=== PATIENT | female | born 1980 | race Caucasian/White ===

== ENCOUNTER 2018-08-18 20:09 | Inpatient (IN) ==
[2018-08-18] MEDS ORDERED: Piperacillin/Tazobactam 3.375 GM in 0.9 % Sodium Chloride Mini Bag 100 ML IVPB ONE (20:40)
[2018-08-18] MEDS ORDERED: 0.9 % Sodium Chloride 1,000 ML IV SCH (20:45)
--- NOTE | 2018-08-18 20:57 | Emergency Department Note ---
Disposition Clinical Impression: Abscess, Cellulitis and abscess of hand Disposition: Admitted As Inpatient Condition: Good Time of Disposition: 20:55 General Adult HPI - General Chief complaint: ED Extremity Injury, Upper Stated complaint: Lt index finger swelling Time Seen by Provider: 08/18/18 20:32 Source: patient Limitations: no limitations Nursing Notes Reviewed: Yes Vital Signs Reviewed: Yes - History of Present Illness HPI Narrative: Progressive abscess to the dorsum of left index finger proximal phalanx. Blotchy erythema to the dorsum the left hand. Also erythema in the left forearm and left arm. No neurovascular deficits. No flexor compartment involvement of the left index at this time. Subjective fever for 2-3 days. Swelling of the left index present for 4-5 days. Continued IV drug use. She denies IV drug use at the site. Patient was accepted to the hospitalist by admission at 10:50 PM. Patient's status improved prior to admission. Onset (ago): day(s) Radiation: non-radiation Pain Scale: 9 Quality: aching Consistency: constant Improves with: nothing Worsens with: nothing Associated symptoms: Reports: cough, fever/chills. Denies: diaphoresis - Related Data Home Medications Medication Instructions Recorded Confirmed Aspirin [Adult Low Dose Aspirin EC] 81 mg PO DAILY 01/06/16 02/22/18 Previous Rx's Medication Instructions Recorded Sulfamethoxazole/Trimeth DS 1 each PO BID #20 tablet 02/22/18 [Bactrim DS] Allergies Allergy/AdvReac Type Severity Reaction Status Date / Time Cyclobenzaprine Allergy Hives Verified 01/18/18 16:21 [From Flexeril] diphenhydramine Allergy Hives Verified 01/18/18 16:21 [From Benadryl] ketorolac [From Toradol] Allergy Hives Verified 01/18/18 16:21 quetiapine [From Seroquel] Allergy Palpitation Verified 01/18/18 16:21 s trazodone Allergy Palpitation Verified 01/18/18 16:21 s Constitutional: Reports: as per HPI, fever, chills Eyes: Denies: eye pain, eye discharge, vision change ENT ED: Denies: ear pain, throat pain, dental pain, hearing loss, epistaxis, congestion, dysphagia Cardiovascular: Denies: chest pain, palpitations, dyspnea on exertion, edema, syncope Respiratory: Denies: cough, dyspnea, wheezes, hemoptysis, stridor Gastrointestinal: Denies: abdominal pain, nausea, vomiting, diarrhea, constipation, hematemesis, melena, hematochezia Genitourinary: Denies: dysuria, frequency, hematuria, discharge Musculoskeletal: Denies: back pain, neck pain, arthralgia, myalgia Integumentary: Reports: as per HPI, rash, lesions Neurological: Denies: headache, weakness, numbness, paresthesias, confusion Psychiatric: Denies: suicidal thoughts, homicidal thoughts Endocrine: Denies: fatigue Hematological/Lymphatic: Denies: easy bleeding, easy bruising Allergic/Immunologic: Denies: facial swelling, urticaria Past Medical History - Past Medical History Medical history: Reports: atrial fibrillation, hepatitis, migraine Surgical history: Reports: cholecystectomy Psychiatric history: Reports: bipolar [employer]VENUE COORDINATOR history: Reports: endometriosis - Social History Smoking Status: Current every day smoker Smokeless Tobacco Status: No Alcohol use: Reports: none Drug use: Reports: IV Drug Use Physical Exam - General Limitations: no limitations General appearance: alert, in no apparent distress - Head Head exam: atraumatic, normocephalic, normal inspection - Eye Eye exam: Present: normal appearance, PERRL, EOMI - Expanded Eye Exam Pupils: Left: reactive - ENT ENT exam: normal exam, normal oropharynx, mucous membranes moist - Expanded ENT Exam External ear exam: Present: normal external inspection Mouth exam: Present: normal external inspection Teeth exam: Present: normal inspection Throat exam: Present: normal inspection - Neck Neck exam: Present: normal inspection, full ROM, trachea midline - Chest Chest inspection: Present: normal inspection, symmetric chest wall rise - Respiratory Respiratory exam: Present: normal lung sounds bilaterally - Cardiovascular Cardiovascular exam: Present: regular rate, normal rhythm, normal heart sounds - Abdominal Exam Abdominal exam: Present: soft, Non-Tender. Absent: tenderness, distention, guarding, rebound, rigidity - Extremities Exam Extremities exam: Present: tenderness, joint swelling, other (left upper extremity exam as noted in hpi) - Expanded Upper Extremity Exam Shoulder exam: Present: normal inspection, full ROM Arm exam: Present: normal inspection, full ROM Elbow exam: Present: normal inspection, full ROM Forearm/Wrist exam: Present: normal inspection, full ROM Hand exam: Present: normal inspection, full ROM Vascular exam: Normal: capillary refill, radial pulse - Expanded Lower Extremity Exam Hip/Pelvis exam: Present: normal inspection, full ROM Upper leg exam: Present: normal inspection, full ROM Knee exam: Present: normal inspection, full ROM Lower leg exam: Present: normal inspection, full ROM Ankle exam: Present: normal inspection, full ROM Foot/toe exam: Present: normal inspection, full ROM Neurovascular/Tendon exam: Absent: motor deficit, sensory deficit, tendon deficit - Back Exam Back exam: Present: normal inspection, full ROM. Absent: tenderness - Neurological Exam Neurological exam: Present: alert, oriented X3 - Expanded Neurological Exam Patient oriented to: Present: person, place, time Coma Scale Eye Opening: Spontaneous Coma Scale Motor Response: Obeys Commands Coma Scale Verbal Response: Oriented Coma Scale Total: 15 - Psychiatric Psychiatric exam: Present: normal affect, normal mood - Skin Skin exam: Present: warm, dry, intact, normal color Course Vital Signs Temperature 99.3 F 08/18/18 20:10 Pulse Rate 92 08/18/18 20:10 Respiratory Rate 16 08/18/18 20:10 Blood Pressure 126/89 08/18/18 20:10 O2 Sat by Pulse Oximetry 97 08/18/18 20:10 Temperature 99.3 F 08/18/18 20:10 Pulse Rate 84 08/18/18 22:40 Respiratory Rate 18 08/18/18 22:40 Blood Pressure 111/72 08/18/18 22:40 O2 Sat by Pulse Oximetry 97 08/18/18 20:10 Oxygen Delivery Oxygen Delivery Room Air Medical Decision Making - Lab Data Result diagrams: 08/18/18 20:41 08/18/18 20:41 Lab Results 08/18/18 08/18/18 08/18/18 Range/Units 20:41 20:41 20:52 WBC 12.8 H (4.3-11.1) K/mcL RBC 4.85 (3.82-4.97) M/mcL Hgb 13.8 (11.5-15.4) g/dL Hct 42.6 (35.3-44.9) % MCV 87.8 (83.0-100.0) fL MCH 28.5 (28.0-33.3) pg MCHC 32.4 (31.6-35.5) g/dL RDW 13.2 (11.5-14.5) % Plt Count 228 (140-400) K/mcL MPV 10.5 (9.4-12.4) fL Sodium 138 (136-145) mEq/L Potassium 3.5 (3.5-5.1) mEq/L Chloride 105 (98-107) mEq/L Carbon Dioxide 24 (23-29) mEq/L BUN 10 (6-20) mg/dL Creatinine 0.70 (0.60-1.20) mg/dL Est GFR ( Amer) > 60 (> 60) Est GFR (Non-Af Amer) > 60 (> 60) BUN/Creatinine Ratio 14 (6-26) Glucose 106 H (70-105) mg/dL Calculated Osmolality 285 (280-300) Calcium 9.2 (8.6-10.3) mg/dL Urine Color (Yellow) Urine Clarity (Clear) Urine pH (5.0-8.0) pH Units Ur Specific [place] (1.010-1.025) Urine Protein (Neg-Trace) mg/dL Urine Glucose (UA) (Normal) mg/dL Urine Ketones (Negative) mg/dL Urine Blood (Negative) Urine Nitrite (Negative) Urine Bilirubin (Negative) Urine Urobilinogen (Normal) mg/dL Ur Leukocyte Esterase (Negative) Urine Microscopic RBC (0-3) per hpf Urine Microscopic WBC (0-3) per hpf Ur Squamous Epith Cells (None-Few) per lpf Ur Transition Epith Cell (None-Few) per hpf Ur Renal Epithelial Cell (None-Few) per hpf Urine Bacteria (None-Few) per hpf Urine Mucus (Few) Urine Test Negative (Negative) 08/18/18 Range/Units 20:53 WBC (4.3-11.1) K/mcL RBC (3.82-4.97) M/mcL Hgb (11.5-15.4) g/dL Hct (35.3-44.9) % MCV (83.0-100.0) fL MCH (28.0-33.3) pg MCHC (31.6-35.5) g/dL RDW (11.5-14.5) % Plt Count (140-400) K/mcL MPV (9.4-12.4) fL Sodium (136-145) mEq/L Potassium (3.5-5.1) mEq/L Chloride (98-107) mEq/L Carbon Dioxide (23-29) mEq/L BUN (6-20) mg/dL Creatinine (0.60-1.20) mg/dL Est GFR ( Amer) (> 60) Est GFR (Non-Af Amer) (> 60) BUN/Creatinine Ratio (6-26) Glucose (70-105) mg/dL Calculated Osmolality (280-300) Calcium (8.6-10.3) mg/dL Urine Color Yellow (Yellow) Urine Clarity Cloudy A (Clear) Urine pH 6.0 (5.0-8.0) pH Units Ur Specific [place] 1.018 (1.010-1.025) Urine Protein Negative (Neg-Trace) mg/dL Urine Glucose (UA) Normal (Normal) mg/dL Urine Ketones Negative (Negative) mg/dL Urine Blood Negative (Negative) Urine Nitrite Negative (Negative) Urine Bilirubin Negative (Negative) Urine Urobilinogen Normal (Normal) mg/dL Ur Leukocyte Esterase Moderate H (Negative) Urine Microscopic RBC 0-3 (0-3) per hpf Urine Microscopic WBC 50-100 H (0-3) per hpf Ur Squamous Epith Cells Many H (None-Few) per lpf Ur Transition Epith Cell Few (None-Few) per hpf Ur Renal Epithelial Cell Few (None-Few) per hpf Urine Bacteria Many H (None-Few) per hpf Urine Mucus Few (Few) Urine Test (Negative)
[2018-08-18 21:06] LABS: Bilirubin,Urine Negative (Negative); Blood,Urine Negative (Negative); Clarity,Urine Cloudy (Clear); Color,Urine Yellow (Yellow); Glucose,Urine (UA) Normal (Normal); Ketones,Urine Negative (Negative); Leukocyte Esterase,Urine Moderate (Negative); Nitrite,Urine Negative (Negative); Protein,Urine Negative (Neg-Trace); Specific Gravity,Urine 1.018 (1.010-1.025); Urobilinogen,Urine Normal (Normal)
[2018-08-18] MEDS ORDERED: Lidocaine TOPICAL Soln 50 ML BOTTLE TP ONE (21:07)
[2018-08-18 21:08] LABS: Squamous Epithelial Cell,Urine Many per lpf (None-Few); WBC,Urine 50-100 per hpf (0-3)
[2018-08-18] MEDS ORDERED: Lido/Epi/Tetra Gel 2 ML SYRINGE TP ONE (21:11)
[2018-08-18 21:35] LABS: Bacteria,Urine Many per hpf (None-Few); Mucus,Urine Few (Few)
[2018-08-18 21:36] LABS: RBC,Urine 0-3 per hpf (0-3); Renal Epithelial Cells,Urine Few per hpf (None-Few); Transitional Epi Cells,Urine Few per hpf (None-Few)
[2018-08-18 21:44] LABS: Hematocrit 42.6 % (35.3-44.9); Hemoglobin 13.8 g/dL (11.5-15.4); Mean Corpuscular HGB Conc 32.4 g/dL (31.6-35.5); Mean Corpuscular Hemoglobin 28.5 pg (28.0-33.3); Mean Corpuscular Volume 87.8 fL (83.0-100.0); Mean Platelet Volume 10.5 fL (9.4-12.4); Platelet Count 228 K/mcL (140-400); Red Blood Count 4.85 M/mcL (3.82-4.97); Red Cell Distribution Width 13.2 % (11.5-14.5)
[2018-08-18 22:01] LABS: BUN/Creatinine Ratio 14 (6-26); Blood Urea Nitrogen 10 mg/dL (6-20); Calcium 9.2 mg/dL (8.6-10.3); Carbon Dioxide 24 mEq/L (23-29); Chloride 105 mEq/L (98-107); Glucose 106 mg/dL (70-105); Osmolality,Calculated 285 (280-300); Potassium 3.5 mEq/L (3.5-5.1); Sodium 138 mEq/L (136-145); eGFR For Non-African Americans > 60 (> 60)
[2018-08-18] MEDS ORDERED: Tdap (Boostrix) Vaccine 0.5 ML SYRINGE IM ONE (22:33)
[2018-08-18] MEDS ORDERED: *HR* OxyCODONE/APAP 5/325 TABLET PO ONE (23:27)
[2018-08-18] MEDS ORDERED: *HR* Morphine 2 MG/ML SYRINGE IVP ONE (23:31)
[2018-08-18] MEDS ORDERED: Isovue-370 500 ML INFUS..BTL IV ONE (23:33)
--- NOTE | 2018-08-18 23:58 | Internal Med History&Physical ---
Date of Encounter: 08/19/18 Time of Encounter: 23:58 Internal Medicine - H&P: HPI Chief complaint: left hand pain Admitted From: Emergency Dept Plans for Post Hospital Care: Home History of present illness: Ivett Kelly is a 38 year old woman with active substance use disorder who engages in heroin injections, reports a history of atrial fibrillation and also a heart murmur since childhood who presents to the ER complaining of pain and swelling to her left hand. She says that about 4 days ago she noticed a lesion on the dorsum of her left index finger with a dark spot and surrounding erythema. She states that it is unrelated to IVDU but rather noticed it after picking weeds. The next day she noticed the whole finger was compromised with swelling and erythema. The day after her hand was now affected with accompanying fever and chills. Today she noticed extension of the swelling to her whole left forearm with blotches of redness extending up to her arm close to her axilla. She also now reports an inability to flex/extend her finger joints. In the ER a bedside I&D was done although it does not appear cultures were obtained. She is now admitted for further management. PMHx: As indicated above. SHx: Tonsillectomy Social: Active illicit drug use. FHx: No family history of recurrent infections. Review of systems: All systems reviewed and negative except as listed above in the HPI. Vitals: Reviewed General: Well developed, crying in pain. Skin: Warm and supple. HEENT: Moist mucous membranes. No conjunctivae pallor. Neck: No lymphadenopathy. No JVD. No carotid bruits. No palpable thyroid. Chest: Normal thoracic expansion. Normal breath sounds. Clear to auscultation. Heart: Normal S1 & S2; rhythmic. No rubs or murmurs. Abdomen: Non-distended, soft and non-tender to palpation. No peritoneal reaction. Extremities: Left hand wrapped in gauze with notable bleeding at the incision site; left forearm tense and tender to palpation; blotchy areas of erythema of dorsum of left hand/forearm and medial aspect of arm in the humeral region. . Neurological: Awake, alert and oriented to person, place and time. No focal deficits. Psych: Affect appropriate. Past Med Surg Social Fam HX - Past Medical History Medical history: atrial fibrillation, hepatitis, migraine Additional medical history: heart murmur Psychiatric history: bipolar - Past Surgical History Surgical History: cholecystectomy Additional surgical history: ovarian cyst removal. - Social History Smoking Status: Current every day smoker Smokeless Tobacco Status: No Alcohol use: none Drug use: IV Drug Use - Family History Mother Family Member Ethnicity: Non- Living Status: Still Living Hx Family Cardiac Disorders: No Hx Family Respiratory Disorders: No Hx Family Cancer: No Hx Family GI Disorders: No Hx Family Endocrine Disorder: No Hx Family Neuromuscular Disorders: No Hx Family Neurologic Disorders: No Hx Family HEENT Disorders: No Hx Family Autoimmune Disorders: No Internal Medicine - H&P: Meds Aspirin [Adult Low Dose Aspirin EC] 81 mg PO DAILY 01/06/16 [History] Sulfamethoxazole/Trimeth DS [Bactrim DS] 1 each PO BID #20 tablet 02/22/18 [Rx] 3 Allergy/AdvReac Type Severity Reaction Status Date / Time Cyclobenzaprine Allergy Hives Verified 01/18/18 16:21 [From Flexeril] diphenhydramine Allergy Hives Verified 01/18/18 16:21 [From Benadryl] ketorolac [From Toradol] Allergy Hives Verified 01/18/18 16:21 quetiapine [From Seroquel] Allergy Palpitation Verified 01/18/18 16:21 s trazodone Allergy Palpitation Verified 01/18/18 16:21 s All Systems PM: A 10-system review of systems was performed and is negative for pertinent findings except as documented above in the HPI. - Constitutional Vitals: Temp Pulse Resp BP Pulse Ox 99.3 F 87 18 100/64 97 08/18/18 20:10 08/18/18 23:47 08/18/18 23:47 08/18/18 23:47 08/18/18 20:10 Exam: As above. Internal Med - H&P Results - Labs CBC & Chem 7: 08/18/18 20:41 08/18/18 20:41 - Assessment and plan (1) Cellulitis and abscess of hand Current Visit: Yes Status: Acute Assessment and plan: In an IVDU although she relates it is not associated with injection. It appears she suffered a traumatic injury. The rapidly extensive process is concerning for Strep and Staph species as the inoculated agents. Will administer high dose vancomycin for loading, 1.5grs then continue w/ 1gr q12hrs. Follow blood cultures. Will get CT scan to rule out deeper infection given the severity noted clinically. She will benefit from orthopedics evaluation as the swelling could compromise her neurovascular packet. Also check CT chest w. contrast given complaints of pleuritic chest pain as she could have septic emboli to her lungs. (2) Sepsis Current Visit: Yes Status: Acute Assessment and plan: Evidenced by HR>90 and leukocytosis; secondary to skin/soft tissue infection. Will obtain 2 sets of blood cultures, place on IVF and start abx as indicated above. Check lactate. Qualifiers: Sepsis type: sepsis due to unspecified organism Qualified Code(s): A41.9 - Sepsis, unspecified organism (3) Substance use disorder Current Visit: Yes Status: Acute Assessment and plan: Counseling given. Resources made available. May require SW intervention. (4) Hepatitis Current Visit: Yes Status: Acute Assessment and plan: Reported. Will check LFTs and get viral profile. Will need outpatient hepatology f/u for treatment. (5) Atrial fibrillation Current Visit: Yes Status: Acute Assessment and plan: Self-reported. Appears to be in sinus rhythm at this time. Will check EKG again. Not on anticoagulation. Qualifiers: Atrial fibrillation type: paroxysmal Qualified Code(s): I48.0 - Paroxysmal atrial fibrillation (6) DVT prophylaxis Current Visit: Yes Status: Acute Assessment and plan: SubQ heparin indicated. - Time Spent With Patient Total time spent is greater than 50% in coordination of care (as documented) at patient's floor/unit and/or counseling patient: Greater than 35 minutes
[2018-08-19] MEDS ORDERED: Acetaminophen 325 MG TABLET PO PRN (01:08)
[2018-08-19] MEDS ORDERED: Naloxone 0.4 MG/ML INJ IVP PRN (01:08)
[2018-08-19] MEDS ORDERED: *HR* OxyCODONE Immed Rel 5 MG TABLET PO PRN (01:08)
[2018-08-19] MEDS ORDERED: *HR* HYDROcodone/Acet 5/325 mg TABLET PO PRN (01:08)
[2018-08-19 01:38] LABS: Amphetamine Screen,Urine Negative ng/mL (Cutoff=1000); Barbiturate Screen,Urine Negative ng/mL (Cutoff=200); Benzodiazepines Screen,Urine Negative ng/mL (Cutoff=200); Cannabinoid Screen,Urine Negative ng/mL (Cutoff = 50); Cocaine Screen,Urine Positive ng/mL (Cutoff= 300); Opiate Screen,Urine Positive ng/mL (Cutoff=300); Phencyclidine Screen,Urine Negative ng/mL (Cutoff=25)
[2018-08-19] MEDS: Ringers Solution, Lactated 1,000 ML IVC SCH ×2 (03:05→08:30)
[2018-08-19 05:38] LABS: Basophils # 0.1 K/mcL (0.0-0.2); Basophils % 0.5 %; Eosinophils # 0.5 K/mcL (0.0-0.6); Eosinophils % 4.2 %; Hematocrit 39.3 % (35.3-44.9); Hemoglobin 12.6 g/dL (11.5-15.4); Immature Granulocytes % 0.5 % (0-4); Lymphocytes # 2.3 K/mcL (0.6-4.6); Mean Corpuscular HGB Conc 32.1 g/dL (31.6-35.5); Mean Corpuscular Hemoglobin 28.4 pg (28.0-33.3); Mean Corpuscular Volume 88.7 fL (83.0-100.0); Mean Platelet Volume 10.4 fL (9.4-12.4); Monocytes # 0.9 K/mcL (0.0-1.3); Monocytes % 7.6 %; Neutrophils # 7.8 K/mcL (1.6-8.9); Platelet Count 204 K/mcL (140-400); Red Blood Count 4.43 M/mcL (3.82-4.97); Red Cell Distribution Width 13.3 % (11.5-14.5); Segmented Neutrophils % 67.2 %
[2018-08-19] MEDS ORDERED: *HR* Heparin 5,000 UNIT/ML VIAL SQ SCH (06:00)
[2018-08-19 06:02] LABS: Alanine Aminotransferase 6 Units/L (7-52); Albumin 3.5 g/dL (3.5-5.7); Albumin/Globulin Ratio 1.2 (1.1-2.2); Alkaline Phosphatase 111 Units/L (34-104); Aspartate Amino Transferase 9 Units/L (13-39); BUN/Creatinine Ratio 15 (6-26); Bilirubin,Direct 0.1 mg/dL (0.0-0.2); Bilirubin,Indirect 0.2 mg/dL (0.0-1.2); Bilirubin,Total 0.3 mg/dL (0.3-1.0); Blood Urea Nitrogen 10 mg/dL (6-20); Carbon Dioxide 23 mEq/L (23-29); Chloride 109 mEq/L (98-107); Globulin 2.9 g/dL (2.4-3.5); Glucose 114 mg/dL (70-105); Osmolality,Calculated 284 (280-300); Potassium 4.1 mEq/L (3.5-5.1); Sodium 137 mEq/L (136-145); Total Protein 6.4 g/dL (6.4-8.9); eGFR For Non-African Americans > 60 (> 60)
[2018-08-19 07:56] LABS: Hepatitis B Surface Antigen Nonreactive (Nonreactive)
--- NOTE | 2018-08-19 08:56 | Electrocardiograph Report ---
[address] [place], [place] [address] Test Date: 2018-08-19 Pat Name: Ivett Kelly Department: 115 Room: 3A46 Gender: F [employer] Judge: : [id number] Requested By: Dagoberto Martinez Order Number: [id number] Reading MD: Padmini Chacon Measurements Intervals [place] Rate: 79 P: 69 [place]: 156 QRS: 76 QRSD: 101 T: 51 QT: 387 QTc: 422 Interpretive Statements SINUS RHYTHM POSSIBLE RIGHT VENTRICULAR CONDUCTION DELAY Electronically Signed On 08-19-2018 8:54:52 EDT by Padmini Chacon
[2018-08-19 09:22] LABS: Hepatitis A Antibody IgM Grayzone (Nonreactive)
[2018-08-19 09:23] LABS: Hepatitis B Core IgM Reactive (Nonreactive); Hepatitis C Virus Antibody Reactive (Nonreactive)
[2018-08-19 10:16] VITALS: BP 103/68
[2018-08-19] MEDS ORDERED: Aminoglycoside Consult 1 EACH MC ONE (11:55)
--- NOTE | 2018-08-19 18:41 | Discharge Summary ---
Date of Encounter: 08/19/18 Time of Encounter: 11:00 - Discharge Diagnosis (1) Sepsis Priority: Primary Status: Acute Qualifiers: Sepsis type: sepsis due to unspecified organism Qualified Code(s): A41.9 - Sepsis, unspecified organism (2) Cellulitis and abscess of hand Priority: Primary Status: Acute (3) Substance use disorder Priority: Primary Status: Acute (4) Hepatitis Priority: Primary Status: Acute (5) Atrial fibrillation Priority: Primary Status: Acute Qualifiers: Atrial fibrillation type: paroxysmal Qualified Code(s): I48.0 - Paroxysmal atrial fibrillation Hospital course: Patient is a 38-year-old female with past medical history significant for active substance use disorder who engages in heroin injections, reports a history of atrial fibrillation and also a heart murmur since childhood who presents to the ER complaining of pain and swelling to her left hand. She says that about 4 days ago she noticed a lesion on the dorsum of her left index finger with a dark spot and surrounding erythema. She states that it is unrelated to IVDU but rather noticed it after picking weeds. The next day she noticed the whole finger was compromised with swelling and erythema. The day after her hand was now affected with accompanying fever and chills. Today she noticed extension of the swelling to her whole left forearm with blotches of redness extending up to her arm close to her axilla. She also now reports an inability to flex/extend her finger joints. In the ER a bedside I&D was done although it does not appear cultures were obtained. She is now admitted for further management. During patients hospital stay she signed out AMA even after the risks and benefits were explained to her. Patient admitted that she was withdrawing from heroin and needed to leave the hospital. - Time Spent with Patient Total time spent providing and/or coordinating discharge services: Less than 30 minutes - Discharge Medications Home Medications: Aspirin [Adult Low Dose Aspirin EC] 81 mg PO DAILY 01/06/16 [History] Allergies/Adverse Reactions: 3 Allergy/AdvReac Type Severity Reaction Status Date / Time Cyclobenzaprine Allergy Hives Verified 01/18/18 16:21 [From Flexeril] diphenhydramine Allergy Hives Verified 01/18/18 16:21 [From Benadryl] ketorolac [From Toradol] Allergy Hives Verified 01/18/18 16:21 quetiapine [From Seroquel] Allergy Palpitation Verified 01/18/18 16:21 s trazodone Allergy Palpitation Verified 01/18/18 16:21 s Date of admission: 08/18/18 23:58 Primary care physician: PCP NONE Consults: 08/19/18 03:28 Consult to Orthopedic Surgery [CONS] Routine Consulting Provider: [facility] Reason for Consult: 38 y/o F IVDU with significant left arm cellulitis s/p finger I&D with extension of erythema up her arm. Call Completed: No - Constitutional Vitals: Temp Pulse Resp BP Pulse Ox 98.8 F 77 14 131/87 95 08/19/18 10:06 08/19/18 10:06 08/19/18 10:06 08/19/18 10:06 08/19/18 10:06 General appearance: Present: A&O X 3 Exam: as above - Patient Status Disposition: Left Against Medical Advice Condition: Good - Discharge Instructions Follow Up With: NONE,PCP [Primary Care Provider] -
== END 2018-08-19 11:56 | disposition left against medical advice (07) | DRG 720 ==
LOC: EMEROOARM 20:09 → 3ANU 20:09 → SUATTDRO 23:58 → 3ANU 08-19 00:10
PROVIDERS: ADMIT Internal Medicine; ATTEND Hospitalist